=== PATIENT | female | born 1940 | race Caucasian/White ===

== ENCOUNTER 2016-04-24 18:27 | Inpatient (IN) | payer MEDICARE ==
[~2016-04-24] VITALS: Ht 147.3 cm; Wt 35.4 kg
[2016-04-24 19:05] LABS: BASOPHILS 0.3 % (0.0-2.0); EOSINOPHILS 0.5 % (0-7); HEMATOCRIT 28.9 % (36.0-48.0); IMMATURE GRANULOCYTES 0.1 % (0-5); LYMPHOCYTES 16.4 % (15-50); MCHC 31.1 g/dL (31.0-37.0); MCV 99.7 fL (80.0-100.0); MEAN PLATELET VOLUME 9.1 fL (7.4-10.4); MONOCYTES 7.1 % (2-11); NEUTROPHILS 75.6 % (40-80); PLATELET COUNT 208 10x3/uL (130-400); RDW 14.2 % (11.5-14.5); WBC 7.4 10x3/uL (4.8-10.8)
[2016-04-24 19:23] LABS: ALKALINE PHOSPHATASE 61 U/L (46-116); ALT (SGPT) 17 U/L (10-68); BILIRUBIN - TOTAL 0.18 mg/dL (0.2-1.3); CALC OSMOLALITY 282 mosm/kg (275-300); CALCIUM 8.4 mg/dL (8.5-10.1); CARBON DIOXIDE 34.5 mmol/L (21.0-32.0); CHLORIDE - SERUM 102 mmol/L (98-107); CREATININE - SERUM 0.7 mg/dL (0.6-1.3); GLUCOSE 101 mg/dL (74-106); PROTEIN - SERUM 6.2 g/dL (6.4-8.2); SODIUM 142 mmol/L (136-145); UREA NITROGEN 12 mg/dL (7-18); eGFR NON AFRICAN AMERICAN 86 mL/min (90-120)
[2016-04-24 19:42] LABS: AMYLASE - SERUM 40 U/L (25-115)
[2016-04-24 19:44] LABS: LIPASE 4 U/L (73-393); PRO BNP 1 pg/mL (0-450)
[2016-04-24 19:45] LABS: TROPONIN-I 0.066 ng/mL (0.000-0.060)
[2016-04-24 21:33] VITALS: BP 156/72
--- NOTE | 2016-04-24 21:33 | NUR ---
RECEIVED TO ROOM 2134 ALERT AND ORIENTED 75 Y/O FEMALE SEEN BY DR CHEW AND ADMITTED FOR COPD AND ANEMIA VIA W/C FROM ER. O2 @ 2L NC IN PLACE, O2 SAT 92%, SITTING ON SIDE OF BED, TELEMETRY PLACED SHOWING HR SR PER REAL ESTATE SALES ASSOCIATE. LEFT AC SL INTACT WITH NO R/S NOTED AT SITE. USES CANE TO AMBULATE, ALICIA WELL. ORIENTATION TO UNIT ROOM, BED, C/L, TV, PHONE, AND BATHROOM GIVEN WITH UNDERSTANDING VERBALIZED. HOB UP SR UP X2, C/L IN REACH. CONTINUE TO MONITOR.
[2016-04-24] MEDS ORDERED: PROAIR HFA8.5 GM INH ×3 (22:44→23:00)
[2016-04-24] MEDS ORDERED: LISINOPRIL10 MG PO (22:47)
[2016-04-24] MEDS ORDERED: LASIX20 MG PO (22:50)
[2016-04-24] MEDS ORDERED: K-TAB10 MEQ PO (22:51)
[2016-04-24] MEDS ORDERED: BREO ELLIPTA 21 EACH (22:53)
[2016-04-24] MEDS ORDERED: HYDROCODON-ACE1 EAC7 PO (22:53)
[2016-04-24] MEDS ORDERED: PROVENTIL/2.5 MG/3 M INH (22:55)
[2016-04-25] VITALS (8 sets, daily range): BP systolic 125–156; BP diastolic 51–72; Ht 147.3 cm; Wt 35.4 kg
--- NOTE | 2016-04-25 07:30 | NUR ---
RESTING QUIETLY NAD NOTED
--- NOTE | 2016-04-25 08:03 | NUR ---
ASSESSMENT DONE. PT SITTING UP ON SIDE OF BED. A/O. REFUSES BREAKFAST. REQUEST OATMEAL, NURSE SENT MESSAGE TO KITCHEN. NO DISTRESS NOTED. CALL LIGHT WITH IN REACH. WILL CONT. TO MONITOR.
--- NOTE | 2016-04-25 08:50 | NUR ---
SCD'S ON BILATERAL LE
[2016-04-25 09:31] LABS: % SATURATION 9 % (15-55); IRON 35 ug/dl (35-150); TOTAL IRON BIND CAPACITY 362 ug/dl (260-445); UNSAT IRON BIND CAPACITY 327 ug/dl (150-375)
[2016-04-25 09:32] LABS: FERRITIN 16 ng/mL (3-244); LDH 214 U/L (81-234)
--- NOTE | 2016-04-25 11:26 | NUR ---
PT LAYING IN BED, HOB ELEVATED 45 DEGREES. PT REQUEST THE AIR CONDITIONING BE TURNED DOWN, STATES SHE IS HOT. PT C/O BEING HUNGERY, BUT REFUSES ANYTHING OFFERED, AND REFUSES TO ALLOW NURSE TO REQUEST ANY ADDITION FOOD FROM KITCHEN. PT WANTS INSTANT OATMEAL "QUACKER" BRAND, THE KITCHEN MADE PT OATMEAL WITH CINNAMON AND BROWN SUGAR AT PT'S REQUEST THIS AM, WHICH PT REFUSED TO EAT. PT STATES SHE HAS TRIED TO CALL HER GRAND-DAUGHTER SEVERAL TIMES TO BRING HER SOME OATMEAL FROM HOME, AND HER CALLS ARE GOING UNANSWERED. CALL LIGHT WITH IN REACH. WILL CONT. TO MONITOR.
--- NOTE | 2016-04-25 17:34 | NUR ---
PT SITTING ON SIDE OF BED YELLING "SOMEBODY HELP ME PLEASE." CHILDBIRTH EDUCATOR IN ROOM. PT REQUESTED ASSIT WITH AMB TO RESTROOM. NURSE REMINDED PT TO USE CALL LIGHT. WILL CONT. TO MONITOR.
--- NOTE | 2016-04-25 18:18 | NUR ---
PT IS REFUSING TO SIT ON TOILET WITH HAT IN IT. NURSE HAS ATTEMPTED TO EDUCATE PT SEVERAL TIMES ON THE NEED TO MONITOR OUTPUT, BUT PT BECOMES ANXIOUS AND WILL CRY.
--- NOTE | 2016-04-25 18:34 | NUR ---
PT YELLING OUT " HELP, PLEASE HELP ME." SUPERVISOR SOUND TECHNICIAN WENT INTO ROOM. AND ASSITED PT TO RESTROOM. PT STATES " I KNOW YOU DON'T HAVE TIME FOR ME, I SEE YOU RUNNING AND HIDING FROM ME. NURSE REMINDED PT THAT WE ARE HERE TO HELP AND TAKE CARE OF HER AND WHEN SHE SEES UP "RUNNING" IT IS BECAUSE WE ARE LOOKING AFTER OTHER PTS. SHE STATES " I NEED TO GET OUT OF HERE. I'M SICK OF THIS PLACE."
--- NOTE | 2016-04-25 18:43 | NUR ---
PAGED [facility]PE CLINICAL ADMINISTRATIVE COORDINATOR TO NOTIFY OF PT'S INCREASE IN ANXIETY
--- NOTE | 2016-04-25 18:47 | NUR ---
SPOKE WITH LUPE PRORATION CLERK WITH DR. CHEW. RECEIVED ORDER FOR ATIVAN 0.5MG IV Q8H PRN. ALSO INFORMED LUPE THAT PT IS REQUESTING A ISABEL. LUPE DOES NOT WANT A ISABEL CATH PLACED. PT NOTIFED. THIS NURSE CANNOT GIVE ATIVAN AT THIS TIME. THE PIXIS IS BEING COUNTED.
--- NOTE | 2016-04-25 19:49 | NUR ---
RESUMED CARE OF PT, PT ASKING FOR FAN, I FOUND IVAN, 02-2L, IV-LAC-SL, [id number], ASSIST PT TO RESTROOM, SCD ARE ON, CALL LIGHT IN REACH, BED IS LOW, SRX2, WILL CONITUE TO MONITOR
--- NOTE | 2016-04-25 21:10 | NUR ---
FEFUSED BLOOD PRESSURE MEDS AND ATIVAN
--- NOTE | 2016-04-26 01:49 | NUR ---
PT STATES SHE HAS MONEY IN PANTS POCKET, I COUNTED $354.00,GELACIO CANALES VERIFIED, REFUSING TO SEND TO SAFE
--- NOTE | 2016-04-26 03:57 | NUR ---
SLEEPING. WILL CONTINUE TO MONITOR
[2016-04-26 05:12] VITALS: BP 144/68
--- NOTE | 2016-04-26 07:00 | NUR ---
PT. WAS RECEIVED AT THE BEGINNING OF THIS SHIFT IN BED AWAKE AND ORIENTED TO PERSON. PT VERY CONFUSED AND AGGITATED. SHE IS WORRIED ABOUT HER ANIMAL AT HOME. LEFT AC SALINE LOCKED. WILL BE MONITORING HER AND ASSISTING PRN WITH ADL'S. CALL LIGHT IN REACH.
[2016-04-26 07:26] LABS: HAPTOGLOBIN 140 mg/dL (34-200)
[2016-04-26 08:31] VITALS: BP 144/70
[2016-04-26 11:42] VITALS: BP 126/56
[2016-04-26 14:22] LABS: SPE - A/G RATIO 1.2 (0.7-1.7); SPE - ALBUMIN 3.2 g/dL (2.9-4.4); SPE - ALPHA-1 GLOBULIN 0.3 g/dL (0.0-0.4); SPE - ALPHA-2 GLOBULIN 0.7 g/dL (0.4-1.0); SPE - BETA GLOBULIN 0.9 g/dL (0.7-1.3); SPE - GAMMA GLOBULIN 0.8 g/dL (0.4-1.8); SPE - M-SPIKE Not Observed g/dL (Not Observed); SPE - TOTAL PROTEIN 5.9 g/dL (6.0-8.5)
--- NOTE | 2016-04-26 14:30 | NUR ---
PT. PULLED OUT HER IV. SHE REFUSED HER AM MEDICATIONS. SHE IS NON-COMPLIANT WITH THE STAFF AND IS AGGITATED ABOUT EVERYTHING. SHE DID TAKE A LITTLE NAP THIS AFTERNOON.
[2016-04-26] MEDS ORDERED: ASPIRIN EC81 M1 PO (15:11)
[2016-04-26] MEDS ORDERED: TOPROL XL25 MG PO (15:11)
[2016-04-26 15:51] VITALS: BP 130/55
--- NOTE | 2016-04-26 16:50 | NUR ---
Patient Name: BÁRBARA AVALOS Admission Status: ER Accout number: [id number] Admission Date: 04-24-2016 : 1940 Admission Diagnosis:ST ELEVATION (STEMI) MYOCARDIAL INFARCTION OF [facility] SITE Attending: VIMAL Current LOS: 2 Anticipated DC Date: 04-26-2016 Planned Disposition: Home Primary Insurance: MEDICARE A & B Discharge Planning Comments: * Is the patient Alert and Oriented? Yes 0 * How many steps to enter\exit or inside your home? 7-8 0 * PCP DR. CHEW 0 * Pharmacy [facility] [address] 0 * Preadmission Environment Home with Family 0 * ADLs Independent 0 * Equipment Cane Nebulizer Oxygen Walker Wheelchair 0 * Other Equipment HOME AND PORTABLE OXYGEN [facility] - MEDICAL EQUIPMENT PROVIDER 0 * List name and contact numbers for known caregivers / representatives who currently or will assist patient after discharge: KESHIA ERICKSON, [facility], 0 * Community resources currently utilized None 0 * Please name any agencies selected above. NONE 0 * Additional services required to return to the preadmission environment? No 0 * Can the patient safely return to the preadmission environment? Yes 0 * Has this patient been hospitalized within the prior 30 days at any hospital? No 0 CM MET WITH PT IN ROOM TO DISCUSS DISCHARGE PLANNING AND NEEDS. PT REPORTS LIVING AT HOME INDEPENDENTLY WITH HER MOTHER AND ADULT DAUGHTER AND HER RETARDED . PT HAS CANE, NEBULIZER, WALKER, WHEELCHAIR AND A NON WORKING SCOOTER. PT'S MEDICAL EQUIPMENT PROVIDER IS [facility]. PT HAS NO OUTSIDE SERVICES ASSISTING IN THE HOME. CM DISCUSSED AVAILABILITY OF HOME HEALTH, REHAB SERVICES AND MEDICAL EQUIPMENT. PT DENIES DISCHARGE NEEDS, SHE HAS HAD HOME HEALTH IN THE PAST AND DOES NOT NEED IT NOW. PT REPORTS HER GRANDDAUGHTER WILL PICK HER UP FOR DISCHARGE HOME TODAY. CM DISCUSSED HOW TO CONTACT HER PRIMARY DOCTOR TO ARRANGE HOME HEALTH IF SHE CHANGES HER MIND. PT REPORTS NOT REALLY HAVING PRIMARY CARE DOCTOR, HAS BEEN SEEING DR CHEW; CM PROVIDED AND DISCUSSED [facility] INFORMATION TO AID IN PT'S SEARCH FOR PRIMARY CARE DOCTOR. IMPORTANT MESSAGE FROM MEDICARE PROVIDED AND EXPLAINED. Community Health Promoter: Javed Orantes
[2016-04-26 19:00] VITALS: BP 129/57
--- NOTE | 2016-04-26 19:15 | NUR ---
RECEIVED PT IN BED NAD NOTED STATES TRYING TO GET IN TOUCH WITH HER GRANDDAUGHTER TO PICK HER UP. UNABLE TO REACH ANYONE WILL CONTINUE TO TRY
[2016-04-27] VITALS: BP 118/61
[2016-04-27 04:00] VITALS: BP 123/59
[2016-04-27 07:39] VITALS: BP 156/62
--- NOTE | 2016-04-27 09:25 | NUR ---
DAUGHTER CALLED TO CHECK ON PATIENT. INFORMED DAUGHTER(COLE) THAT PATIENT WAS DISCHARGED YESTERDAY BUT COULD NOT GET HOLD OF ANYONE TO COME AND GET HER. DAUGHTER SAID SHE WOULD CALL SOMEONE.
--- NOTE | 2016-04-27 12:41 | NUR ---
PATIENT FAMILY HERE TO TRANSPORT PT HOME. DISCHARGE INSTRUCTIONS GIVEN AND BOTH PATIENT AND FAMILY UNDERSTAND. TO CAR VIA
--- NOTE | 2016-05-02 14:16 | EC ---
PATIENT:BÁRBARA AVALOS DATE OF SERVICE: 04/24/16 SEX: F MEDICAL RECORD: [id number] DATE OF : [birth year] LOCATION:D.M2 D.213 AGE OF PATIENT: 75 ADMISSION DATE: 04/24/16 REFERRING PHYSICIAN: INTERPRETING PHYSICIAN: JEFF AVENDAÑO MD ECHOCARDIOGRAM REPORT ECHO CHARGES 4 ECHO COMPLETE CLINICAL DIAGNOSIS: CHF ECHOCARDIOGRAPHIC MEASUREMENTS (adult normal given) AC root (d.<3.7cm) 2.7 LV Septum d (<1.2 cm> 1.1 Valve Excursion 1.2 LV Septum (systole) 1.4 Left Atria (s.<4.0cm> 3.5 LVPW d(<1.2cm) 1.2 RV (d.<2.3cm) 1.6 LVPW (sytole) 1.4 LV diastole(<5.6CM) 5.5 MV E-F(>70mm/sec) LV systole 4.6 LVOT Diameter 1.4 MV exc.(>10mm) Est.ejection fraction (50-75%) Pericardial Effusion N DOPPLER: LVIT A 160 E 120 LA RVSP 61.0 LVOT 81.0 AOP1/2T Asc. Ao 202 RVOT 79.0 RA PA 96.0 AV Gradient Peak 16.4 AV Mean 8.3 AV Area 0.6 MV Gradient Peak 12.0 MV Mean 3.0 MV Area COMMENTS: Dispatch Machine Runner: Lori OLSONOE Barrel Filler:1 Dr. Avendaño TAPE# PACS DATE OF SERVICE: 04/25/2016 Echocardiogram FINDINGS: 1. Left ventricular chamber size is dilated. Left ventricular systolic function is markedly reduced, overall ejection fraction in the 20% range. There is global hypokinesis throughout all segments with no discrete wall motion abnormalities present. 2. Left atrium is within normal limits at 3.5 cm. Right atrium and right ECHOCARDIOGRAM REPORT [id number] BÁRBARA AVALOS ventricle chamber sizes are mildly dilated. 3. Valvular structures have normal structure and motion. 4. Doppler interrogation reveals wupblios-iu-[id number] mitral regurgitation, ummybscg-et-[id number] tricuspid regurgitation, no other valvular insufficiency or stenosis and pulmonary systolic pressure is elevated estimated at 61 mmHg. 5. No evidence of pericardial effusion or left ventricular thrombus. TRANSINT:[id number] Voice Confirmation ID: [id number] DOCUMENT ID: [id number] JEFF AVENDAÑO MD at 1416 CC: [id number] DICTATION DATE: 04/25/16 1233 ENVIRONMENTAL HEALTH MANAGER: 04/25/16 1254 DIS IN 04/27/16 [facility] [address] [id number]
--- NOTE | 2016-06-06 12:39 | DS ---
PATIENT:BÁRBARA AVALOS :38 MEDICAL RECORD: [id number] DISCHARGE SUMMARY ADMISSION DATE: 04/24/16 DISCHARGE DATE: 04/27/16 ADMIT DATE: 04/24/2016 DISCHARGE DATE: 04/27/2016 DISCHARGE DIAGNOSES: 1. Chronic obstructive pulmonary disease exacerbation. 2. Iron deficiency anemia. 3. Congestive heart failure. 4. Cardiomyopathy. 5. Type 2 myocardial infarction secondary to demand ischemia. 6. Congestive heart failure. 7. Deep venous thrombosis. CONSULTS: Dr. Schilling. DIAGNOSTIC TESTS OR STUDIES: 1. Chest x-ray suggests mild congestive heart failure. 2. A venous Doppler of the lower extremities, which was negative for DVT on the right. There was evidence of a thrombus in the greater saphenous vein in the mid calf and ankle. 3. A 2D echo which shows global hypokinesis with EF of 20% with moderate to severe mitral regurgitation, moderate to severe tricuspid regurgitation and pulmonary pressures of 61 mmHg. HOSPITAL COURSE: The full H&P is listed elsewhere in the chart for this 75-year-old female patient, who was admitted with type 2 MO secondary to demand ischemia. She presented to the Emergency Department with shortness of breath and chest discomfort, had noted pulmonary vascular congestion on chest x-ray as well as low LV function with [id number] valvular abnormalities and pulmonary hypertension. A consult was obtained with the cardiology. The patient was started on a beta-blockade and aspirin. She underwent gentle diuresis. Dr. Leal was consulted for the thrombus of the lower extremity for coagulopathy workup. The patient will be worked up in the outpatient venue. The patient's clinical condition improved and the patient was thought to be stable to discharge to home on a regular diet with activity as tolerated. See med rec for the medications. TRANSINT:[id number] Voice Confirmation ID: [id number] DOCUMENT ID: [id number] Dictated By: JAELYN GRIMALDO I have interviewed/examined the above patient and agree with these documented findings. at 1233 at 1238 CC: [id number] DICTATION DATE: 06/02/16 0832 CASINO RUNNER: 06/02/16 2353 DIS IN 04/27/16 [id number] [place] [address]
== END 2016-04-27 12:42 | disposition home or self-care (01) | DRG 811 ==
LOC: D.ER 18:27 → D.M2 20:31
PROVIDERS: Emergency Medicine; Internal Medicine Hematology & Oncology; ADMIT Family Medicine
DX: D50.9 Iron deficiency anemia, unspecified (principal); I21.3 ST elevation (STEMI) myocardial infarction of unspecified site; J44.1 Chronic obstructive pulmonary disease with (acute) exacerbation; I42.9 Cardiomyopathy, unspecified; I24.8 Other forms of acute ischemic heart disease; I50.9 Heart failure, unspecified; I08.1 Rheumatic disorders of both mitral and tricuspid valves; F32.9 Major depressive disorder, single episode, unspecified; Z72.0 Tobacco use

== ENCOUNTER 2016-05-23 02:07 | Emergency (ER) | payer MEDICARE ==
[2016-04-25 14:52] VITALS: BMI 16.3
[~2016-05-23 02:07] MED LIST: ASPIRIN EC81 M1 PO; BREO ELLIPTA 21 EACH; HYDROCODON-ACE1 EAC7 PO; K-TAB10 MEQ PO; LASIX20 MG PO; LISINOPRIL10 MG PO; PROAIR HFA8.5 GM INH; PROVENTIL/2.5 MG/3 M INH; TOPROL XL25 MG PO
== END 2016-05-23 04:41 | disposition home or self-care (01) ==
LOC: D.ER 02:07
DX: J44.1 Chronic obstructive pulmonary disease with (acute) exacerbation (principal); I50.9 Heart failure, unspecified

== ENCOUNTER 2016-05-25 06:40 | Inpatient (IN) | payer MEDICARE ==
[~2016-05-25] VITALS: Ht 147.3 cm; Wt 35.4 kg
[2016-05-25 07:36] LABS: ALBUMIN 3.3 g/dL (3.4-5.0); ALKALINE PHOSPHATASE 79 U/L (46-116); ALT (SGPT) 16 U/L (10-68); BILIRUBIN - TOTAL 0.35 mg/dL (0.2-1.3); CALC OSMOLALITY 281 mosm/kg (275-300); CALCIUM 8.7 mg/dL (8.5-10.1); CARBON DIOXIDE 38.5 mmol/L (21.0-32.0); CHLORIDE - SERUM 101 mmol/L (98-107); CREATININE - SERUM 0.4 mg/dL (0.6-1.3); GLUCOSE 95 mg/dL (74-106); POTASSIUM - SERUM 3.7 mmol/L (3.5-5.1); PROTEIN - SERUM 6.9 g/dL (6.4-8.2); SODIUM 142 mmol/L (136-145); UREA NITROGEN 11 mg/dL (7-18); eGFR NON AFRICAN AMERICAN > 90 mL/min (90-120)
[2016-05-25 07:40] LABS: TROPONIN-I 0.036 ng/mL (0.000-0.060)
[2016-05-25 07:42] LABS: BASOPHILS 0.1 % (0.0-2.0); EOSINOPHILS 0.5 % (0-7); HEMATOCRIT 30.2 % (36.0-48.0); HEMOGLOBIN 9.2 g/dL (12-16); IMMATURE GRANULOCYTES 0.3 % (0-5); LYMPHOCYTES 12.9 % (15-50); MCH 30.3 pg (26.0-34.0); MCHC 30.5 g/dL (31.0-37.0); MCV 99.3 fL (80.0-100.0); MEAN PLATELET VOLUME 9.1 fL (7.4-10.4); MONOCYTES 5.4 % (2-11); NEUTROPHILS 80.8 % (40-80); PLATELET COUNT 238 10x3/uL (130-400); RBC 3.04 10x6/uL (4.00-5.40); RDW 14.1 % (11.5-14.5); WBC 7.5 10x3/uL (4.8-10.8)
--- NOTE | 2016-05-25 11:00 | NUR ---
PATIENT TO ROOM AT THIS TIME WITH IV INTACT. PATIENT ANXIOUS AND WORRIED ASKING FOR BP EVERY FEW SECONDS WELL FOOD AND WATER. EXPLAINED TO PATIENT TO LET US GET HER IN THE BED AND COMFORTABLE AND WOULD LET HER USE THE BED ORDAZ. VERBALIZED UNDERSTANDING. ASSISTED TO THE BED X 2. PLACED ON BEDPAN. CALL LIGHT WITHIN REACH.
--- NOTE | 2016-05-25 11:15 | NUR ---
PATIENT IN BED WITH IV INTACT. FOOD GIVEN AT THIS TIME PER REQUEST. O2 ON. EXPLAINED CALL LIGHT AND ORIENTED TO ROOM. NO QUESTIONS AT THIS TIME. CALL LIGHT WITHIN REACH.
[2016-05-25 11:46] VITALS: BP 154/82
[2016-05-25 16:17] VITALS: BP 140/66
[2016-05-25 18:45] VITALS: BMI 16.3
--- NOTE | 2016-05-25 18:55 | NUR ---
PATIENT IN BED WITH IV INTACT. NO COMPLAINTS OR SIGNS OF DISTRESS. FAMILY AT BEDSIDE. CALL LIGHT WITHIN REACH.
--- NOTE | 2016-05-25 19:15 | NUR ---
BEDSIDE REPORT RECEIVED AND CARE OF PT ASSUMED. IV IN LEFT FA SALINE LOCKED. TELEMETRY IN USE AND READING 71 SR AT THIS ASSESSMENT. WILL MONITOR FADYLEY FOR NEEDS.
[2016-05-25 21:00] VITALS: BP 140/75
[2016-05-25] MEDS ORDERED: SPIRIVA18 MCG INH (21:14)
[2016-05-25] MEDS ORDERED: KLONOPIN0.5 MG PO (21:17)
--- NOTE | 2016-05-25 22:18 | NUR ---
HS MEDICATIONS GIVEN. WILL CONTINUE TO MONITOR FOR NEEDS.
[2016-05-26 02:30] VITALS: BP 144/88
[2016-05-26 05:00] VITALS: BP 133/72
--- NOTE | 2016-05-26 05:37 | NUR ---
ASSISTED PT UP TO USE BSC OR BEDPAN 13 TIMES DURING SHIFT FOR A TOTAL OUTPUT OF 1125 ML.
[2016-05-26 05:49] LABS: BASOPHILS 0 % (0.0-2.0); EOSINOPHILS 0 % (0-7); HEMATOCRIT 29.3 % (36.0-48.0); IMMATURE GRANULOCYTES 0.1 % (0-5); LYMPHOCYTES 3.4 % (15-50); MCHC 30.7 g/dL (31.0-37.0); MCV 97.7 fL (80.0-100.0); MEAN PLATELET VOLUME 9.4 fL (7.4-10.4); MONOCYTES 2.2 % (2-11); NEUTROPHILS 94.3 % (40-80); RDW 13.6 % (11.5-14.5); WBC 7.9 10x3/uL (4.8-10.8)
[2016-05-26 06:05] LABS: CALC OSMOLALITY 282 mosm/kg (275-300); CALCIUM 8.5 mg/dL (8.5-10.1); CARBON DIOXIDE 35.4 mmol/L (21.0-32.0); CHLORIDE - SERUM 99 mmol/L (98-107); CREATININE - SERUM 0.5 mg/dL (0.6-1.3); GLUCOSE 91 mg/dL (74-106); MAGNESIUM - SERUM 1.9 mg/dL (1.8-2.4); SODIUM 140 mmol/L (136-145); eGFR NON AFRICAN AMERICAN > 90 mL/min (90-120)
[2016-05-26 06:09] LABS: UREA NITROGEN 23 mg/dL (7-18)
[2016-05-26 06:23] LABS: PLATELET COUNT 129 10x3/uL (130-400)
--- NOTE | 2016-05-26 07:35 | NUR ---
ASSESSMENT PER FLOW SHEET.PT WITHOUT DISTRESS.CALL LIGHT IN REACH.FALL PREVENTION IN PROGRESS,BOX ALARM.
--- NOTE | 2016-05-26 08:30 | NUR ---
ASSESSMENT PER FLOW SHEET.PT WITHOUT DISTRESS.FAMILY AT BEDSIDE.DENIES NEEDS AT PRESENT.CALL LIGHT IN REACH
[2016-05-26 08:35] VITALS: BP 159/55
--- NOTE | 2016-05-26 09:40 | CN ---
PATIENT NAME:BÁRBARA AVALOS MEDICAL RECORD: [id number] : [birth year] LOCATION:D.MS [id number] ADMIT DATE: 05/25/16 ACCOUNT: [id number] CONSULTING PHYSICIAN: LIBBY ORTIZ MD REFERRING PHYSICIAN: YAAKOV DIAZ M.D. DATE OF CONSULTATION: 05/25/2016 PULMONARY CONSULTATION CONSULT REQUESTING PHYSICIAN: Dr. Yaakov Diaz. REASON FOR CONSULTATION: Acute exacerbation of chronic obstructive pulmonary disease, pulmonary edema and pneumonia. HISTORY OF PRESENT ILLNESS: Ms. Avalos is a 75-year-old female, who is a very poor historian. According to the patient, she is not doing well for the last 2-3 years since the of her . She has lost almost 100 pounds. She denies any fever or chills, no night sweats. But for the last few days, she is coughing green colored phlegm and she has a shortness of breath with mild exertion. Her activity was very limited. Her daughter brought her to the ER. Denied any chest pain. There was some swelling of the lower extremities, but there is no pain. REVIEW OF SYSTEMS: Mainly in the history of present illness. PAST MEDICAL HISTORY: 1. COPD. 2. Chronic hypoxic respiratory failure. 3. History of congestive heart failure with the EF 20%. 4. Pulmonary hypertension. ALLERGIES: SHE IS ALLERGIC TO SULFA AND ACETAMINOPHEN. HOME MEDICATIONS: She is on nebulizer, but this looked like she was not using any because the patient could not afford it. PERSONAL AND SOCIAL HISTORY: The patient still continues to smoke 1 pack per day. She is not a nondrinker. FAMILY HISTORY: Noncontributory. PHYSICAL EXAMINATION: GENERAL: Now, the patient is lying comfortably. She is very initiated. VITAL SIGNS: The blood pressure 154/82, pulse is 113, respiration is 18, temperature is ____, SpO2 is 92% on 3 liter nasal cannula. HEENT: Conjunctivae are pink. Sclerae nonicteric. NECK: Supple, no JVD. CHEST: There is prolonged expiration with wheezing. There are also bibasilar crackles. HEART: Rate and rhythm irregular. There is a grade II/ systolic murmur. ABDOMEN: Soft, bowel sounds present. No hepatosplenomegaly. RECTAL: Deferred. EXTREMITIES: No cyanosis, no clubbing. There is 1+ pedal edema. CENTRAL NERVOUS SYSTEM: The patient is awake and alert. She is a bit hard of hearing. CONSULT REPORT [id number] BÁRBARA AVALOS LABORATORY DATA: CBC: WBC 7.5, hemoglobin 9.2, hematocrit 30.2, and platelet count 238. Chemistry: Sodium 142, potassium 3.7, BUN is 11, creatinine 0.4, glucose 95. ABG: The pH is 7.42, pCO2 is 57, pO2 is 79, bicarbonate of 37.3. IMAGING: CTA of the chest: There is pulmonary edema. There is a emphysematous changes. There are bilateral lower lobe infiltrate. There is bilateral small pleural effusion. There is a remote compression fracture of T7 and T9. IMPRESSION: 1. Abyhu-xs-eueltih hypoxic respiratory failure. 2. Acute exacerbation of chronic obstructive pulmonary disease. 3. Pneumonia, bilateral lower lobe, most likely community-acquired pneumonia, rule out aspiration pneumonia. 4. Bilateral pleural effusion secondary to congestive heart failure with a chronic systolic dysfunction, ejection fraction of 20%. 5. Pulmonary hypertension of severe degree secondary to left heart disease as well as the lung disease. 6. Tobacco dependence syndrome. 7. Unexplained weight loss. RECOMMENDATION: 1. We will start her albuterol/ipratropium nebulizer, Brovana, budesonide nebulizer, methylprednisolone IV, Levaquin IV, furosemide IV, Rocephin 1 g IV q.24 hours. 2. Speech pathology evaluation. Follow labs and chest radiograph. Dr. Diaz, once again thanks for involving me in the care of Ms. Avalos. TRANSINT:[id number] Voice Confirmation ID: [id number] DOCUMENT ID: [id number] LIBBY ORTIZ MD at 0940 CC: YAAKOV DIAZ M.D. [id number] DICTATION DATE: 05/25/16 1321 COOK FISHING VESSEL: 05/25/16 1632 ADM IN [id number] [place] [address]
--- NOTE | 2016-05-26 12:30 | NUR ---
ICE PACK FOR RIGHT FOREARM.PT STATES VERY TENDER.MONITOR FOR NEEDS
--- NOTE | 2016-05-26 13:00 | NUR ---
BITES OF LUNCH.WITHOUT DISTRESS.MONITOR
[2016-05-26 13:31] VITALS: BP 160/69; Ht 147.3 cm; Wt 35.4 kg
[2016-05-26 16:17] VITALS: BP 169/78
--- NOTE | 2016-05-26 17:55 | NUR ---
REMAINS WITHOUT CHANGE FROM INITIAL ASSESSMENT.CONT PLAN OF CARE
--- NOTE | 2016-05-26 18:06 | NUR ---
REMAINS WITHOUT CHANGE FROM INITIAL ASSESSMENT.CONT PLAN OF CARE
[2016-05-26 20:00] VITALS: BP 125/71
--- NOTE | 2016-05-26 21:31 | NUR ---
AWAKE WITH NO COMPLAINTS. IV INFUSING TO LEFT ARM WITHOUT REDNESS OR EDEMA NOTED. CL IN REACH.
[2016-05-27] VITALS: BP 150/79
--- NOTE | 2016-05-27 02:06 | NUR ---
EYES CLOSED RESP EVEN AND UNLABORED. NO DISTRESS NOTED. CL IN REACH. BED ALARM ON.
--- NOTE | 2016-05-27 03:45 | NUR ---
PT IS ASLEEP WITH ON AT 2 LITERS AND EAVN UNLABORED RESPIRATIONS. SHE HAS A BED ALARM IN PLACE AND HER IV IS INFUSING ORDERED. PT IS CLOSE TO THE NURSING STATION WITH THE DOOR OPEN. THE BED IS LOW, RAILS UP X'S 2 WITH THE CALL LIGHT AT HAND.
[2016-05-27 04:00] VITALS: BP 153/68
[2016-05-27 05:43] LABS: BASOPHILS 0 % (0.0-2.0); EOSINOPHILS 0 % (0-7); HEMATOCRIT 28.2 % (36.0-48.0); HEMOGLOBIN 8.7 g/dL (12-16); IMMATURE GRANULOCYTES 0.2 % (0-5); LYMPHOCYTES 5.5 % (15-50); MCH 29.7 pg (26.0-34.0); MCHC 30.9 g/dL (31.0-37.0); MCV 96.2 fL (80.0-100.0); MEAN PLATELET VOLUME 9.8 fL (7.4-10.4); MONOCYTES 4.9 % (2-11); NEUTROPHILS 89.4 % (40-80); PLATELET COUNT 129 10x3/uL (130-400); RBC 2.93 10x6/uL (4.00-5.40); RDW 13.5 % (11.5-14.5); WBC 6.2 10x3/uL (4.8-10.8)
[2016-05-27 05:55] LABS: CALC OSMOLALITY 286 mosm/kg (275-300); CALCIUM 8.7 mg/dL (8.5-10.1); CHLORIDE - SERUM 98 mmol/L (98-107); CREATININE - SERUM 0.6 mg/dL (0.6-1.3); GLUCOSE 89 mg/dL (74-106); MAGNESIUM - SERUM 2.2 mg/dL (1.8-2.4); SODIUM 142 mmol/L (136-145); UREA NITROGEN 27 mg/dL (7-18); eGFR NON AFRICAN AMERICAN > 90 mL/min (90-120)
[2016-05-27 05:58] LABS: POTASSIUM - SERUM 3.2 mmol/L (3.5-5.1)
--- NOTE | 2016-05-27 06:12 | NUR ---
RESTING QUIETLY. NO DISTRESS NOTED. CL IN REACH.
--- NOTE | 2016-05-27 07:18 | NUR ---
PT SITTING IN BED HAVING A BREATHING TREATMENT, NO COMPLAINTS AT THIS TIME, CALL LIGHT IN REACH, BED LOWEST POSITION, WILL CONTINUE TO MONITOR
[2016-05-27 08:13] VITALS: BP 161/69
--- NOTE | 2016-05-27 08:29 | NUR ---
PT SEEN FOR SHEET METAL ASSEMBLER NOTE. COMPLAINTS OF A BAD NIGHT AGAIN WITH NO REST. MILD SOB THIS AM BUT THIS IS NORMAL FOR HER SHE STATES. EXP WHEEZES HEARD WHEN COUGHING. SITTING ON SIDE OF BED FOR AM MEAL. BED ALARM ON FOR SAFETY AND CALL LIGHT IN REACH
--- NOTE | 2016-05-27 12:14 | NUR ---
PT LAYING IN BED RESTING, BACK IS SORE TURNED PT TO SIDE TO RELIEVE PRESSURE, SIDE RAILS UP X2, BED LOWEST POSITION, NO OTHER COMPLAINTS AT THIS TIME, WILL CONTINUE TO MONITOR
[2016-05-27 12:26] VITALS: BP 176/79
--- NOTE | 2016-05-27 15:19 | NUR ---
Patient Name: BÁRBARA AVALOS Admission Status: ER Accout number: [id number] Admission Date: 05-25-2016 : 1940 Admission Diagnosis:ACUTE AND CHRONIC RESPIRATORY FAILURE WITH HYPOXIA Attending: JAMMIE Current LOS: 2 Anticipated DC Date: 05-30-2016 Planned Disposition: Home Primary Insurance: MEDICARE A & B Discharge Planning Comments: CM MET WITH PATIENT REGARDING D/C NEEDS AND PLANS. PATIENT STATED SHE LIVES WITH HER FAMILY AND THEY HELP HER IF NEEDED. PATIENT STATED SHE HAS 3 STEPS W/RAILS TO ENTER HOME AND NO STAIRS INSIDE. PATIENT STATED SHE IS INDEPENDENT WITH HER CARE AND HAS OXYGEN 24/7 AT 2LITERS, PORT O2, NEBULIZER, WALKER, WHEELCHAIR, SHOWER CHAIR, AND BS COMMODE AT HOME. PATIENTS PCP IS DR. CHEW AND PHARMACY IS [facility] [address]. PATIENT REFUSED HOME HEALTH AND STATED SHE DOES NOT NEED THEM. CM WILL CONTINUE TO FOLLOW PATIENT WITH D/C NEEDS AND PLANS. PCP DR. NAINA [facility] [address]- [phone] KESHIA (DAUGHTER) [phone] Director Biostatistics: Cristal Jude Is the patient Alert and Oriented? Yes 0 * How many steps to enter\exit or inside your home? 3 W/RAILS 0 * PCP DR. CHEW 0 * Pharmacy [facility] [address] 0 * Preadmission Environment Home with Family 0 * ADLs Independent 0 * Equipment Bedside Commode Nebulizer Oxygen Shower Chair Walker Wheelchair 0 * List name and contact numbers for known caregivers / representatives who currently or will assist patient after discharge: KESHIA (FAMILY) [phone] 0 * Community resources currently utilized None 0 * Additional services required to return to the preadmission environment? Yes 0 * Can the patient safely return to the preadmission environment? Yes 0 * Has this patient been hospitalized within the prior 30 days at any hospital? Yes 0 Grand Total: 0
[2016-05-27 16:02] VITALS: BP 153/69
[2016-05-27 21:00] VITALS: BP 141/61
--- NOTE | 2016-05-28 00:18 | NUR ---
PT IS AWAKE AND AT TIME OF CHECK REQUESTED TO BE UP TO BSC TO VOID. THIS WAS DONE AND SHE VOIDED ABOUT 400 CC'S WITH OUT PROBLEM. SHE IS SHAKEY AND HAS A BED ALARM IN PLACE FOR SAFETY. SHE IS WEARING HER SCD'S AND THE BED IS LOW, RAILS UP X'S 2 WITH THE CALL LIGHT AT HAND. AND DOOR OPEN.
[2016-05-28 04:00] VITALS: BP 124/56
[2016-05-28 06:42] LABS: BASOPHILS 0 % (0.0-2.0); EOSINOPHILS 0 % (0-7); HEMATOCRIT 33.1 % (36.0-48.0); HEMOGLOBIN 10.2 g/dL (12-16); LYMPHOCYTES 4.1 % (15-50); MCH 30.1 pg (26.0-34.0); MCHC 30.8 g/dL (31.0-37.0); MCV 97.6 fL (80.0-100.0); MEAN PLATELET VOLUME 9.9 fL (7.4-10.4); NEUTROPHILS 93.9 % (40-80); RBC 3.39 10x6/uL (4.00-5.40); RDW 13.4 % (11.5-14.5); WBC 5.4 10x3/uL (4.8-10.8)
[2016-05-28 06:47] LABS: PLATELET COUNT 163 10x3/uL (130-400)
[2016-05-28 07:01] LABS: CALCIUM 8.6 mg/dL (8.5-10.1); CHLORIDE - SERUM 93 mmol/L (98-107); CREATININE - SERUM 0.5 mg/dL (0.6-1.3); POTASSIUM - SERUM 3.1 mmol/L (3.5-5.1); SODIUM 140 mmol/L (136-145); UREA NITROGEN 22 mg/dL (7-18); eGFR NON AFRICAN AMERICAN > 90 mL/min (90-120)
[2016-05-28 07:03] LABS: CALC OSMOLALITY 284 mosm/kg (275-300); GLUCOSE 155 mg/dL (74-106)
[2016-05-28 07:05] LABS: CARBON DIOXIDE 44.5 mmol/L (21.0-32.0)
--- NOTE | 2016-05-28 07:30 | NUR ---
SLEEPING QUIETLY RESP EVEN AND UNLABORED AT PRESENT 02 CONT AT 2L N/C SL PATENT IN LFA AT PRESENT.
--- NOTE | 2016-05-28 09:30 | NUR ---
FAMILY AT BEDSIDE N/C VOICED.
[2016-05-28 10:36] VITALS: BP 142/57
--- NOTE | 2016-05-28 11:00 | NUR ---
02 CONT AT 2L N/C AT PRESENT.
[2016-05-28 11:32] VITALS: BP 160/73
--- NOTE | 2016-05-28 13:00 | NUR ---
UP TO BSC WITH HELP ALICIA WELL AT PRESENT N/C.
[2016-05-28 15:12] VITALS: BP 142/54
--- NOTE | 2016-05-28 15:30 | NUR ---
LAYING QUIETLY WITH EYES CLOSED AT PRESENT N/C AT PRESENT.
--- NOTE | 2016-05-28 17:30 | NUR ---
QUIET IN ROOM AT PRESENT DENIES ANY NEEDS AT THIS TIME WAITING ON SUPPER TRAY.
--- NOTE | 2016-05-28 19:10 | NUR ---
REC'D IN BED WITH EYES CLOSED EASILY TO AROUSED WHEN NAME IS CALLED. RESP EVEN AND UNLABORED WITH NO DISTRESS NOTED. CAN EXPRESS NEEDS AND WANTS. ASSESSMENT COMPLETED. C/L IN REACH AT BEDSIDE.
[2016-05-28 20:00] VITALS: BP 117/63
[2016-05-29] VITALS: BP 118/55
--- NOTE | 2016-05-29 02:01 | NUR ---
LYING IN BED AWAKE, NO ACUTE DISTRESS NOTED, REQUESTED INFORMATION ABOUT AN ASSISTED LIVING FACILITY, WILL REPORT TO DAY SHIFT, FALL PRECAUTIONS IN PLACE, CL IN REACH
--- NOTE | 2016-05-29 03:32 | NUR ---
RESTING WELL AT THIS TIME. NO C/O NOTED OR VOICED AT THIS TIME. WILL CONITNUE TO OBSERVE FOR NEEDS. C/L IN REACH AT BEDSIDE.
[2016-05-29 04:00] VITALS: BP 120/54
[2016-05-29 05:56] LABS: BASOPHILS 0 % (0.0-2.0); EOSINOPHILS 0 % (0-7); HEMATOCRIT 35.1 % (36.0-48.0); HEMOGLOBIN 10.8 g/dL (12-16); IMMATURE GRANULOCYTES 0.1 % (0-5); LYMPHOCYTES 6.8 % (15-50); MCH 29.9 pg (26.0-34.0); MCHC 30.8 g/dL (31.0-37.0); MCV 97.2 fL (80.0-100.0); MEAN PLATELET VOLUME 10.5 fL (7.4-10.4); MONOCYTES 9.2 % (2-11); NEUTROPHILS 83.9 % (40-80); PLATELET COUNT 193 10x3/uL (130-400); RBC 3.61 10x6/uL (4.00-5.40); RDW 13.2 % (11.5-14.5); WBC 6.9 10x3/uL (4.8-10.8)
[2016-05-29 06:13] LABS: CALC OSMOLALITY 287 mosm/kg (275-300); CALCIUM 8.8 mg/dL (8.5-10.1); CHLORIDE - SERUM 94 mmol/L (98-107); CREATININE - SERUM 0.5 mg/dL (0.6-1.3); GLUCOSE 115 mg/dL (74-106); MAGNESIUM - SERUM 2.1 mg/dL (1.8-2.4); SODIUM 142 mmol/L (136-145); UREA NITROGEN 24 mg/dL (7-18); eGFR NON AFRICAN AMERICAN > 90 mL/min (90-120)
[2016-05-29 06:14] LABS: CARBON DIOXIDE 48.1 mmol/L (21.0-32.0); POTASSIUM - SERUM 2.7 mmol/L (3.5-5.1)
--- NOTE | 2016-05-29 07:45 | NUR ---
PT SITTING IN BED, CAN EXPRESS WANTS AND NEEDS, NO CURRENT COMPLAINTS, ASSESSMENT COMPLETE, CALL LIGHT IN REACH, BED LOWEST POSITION, WILL CONTINUE TO MONITOR
[2016-05-29 09:01] VITALS: BP 129/63
--- NOTE | 2016-05-29 10:39 | NUR ---
TALKED TO DR ORTIZ, INFORMED HIM OF CO2 LEVEL 48.1
[2016-05-29 12:06] VITALS: BP 115/62
--- NOTE | 2016-05-29 13:27 | NUR ---
PT SITTING IN BED, NO COMPLAINTS AT THIS TIME, BED LOWEST POSITION, CALL LIGHT IN REACH, WILL CONTINUE TO MONITOR
--- NOTE | 2016-05-29 14:36 | NUR ---
PT REFUSED MEDICATION, SHE STATES SHE WANTS TO GO HOME, WILL CONTINUE TO MONITOR
[2016-05-29 16:26] VITALS: BP 132/70
--- NOTE | 2016-05-29 17:00 | NUR ---
QUIET IN ROOM AT PRESENT DENIES ANY NEEDS AT PRESENT 02 CONT AT 2L AT PRESENT.
[2016-05-29 19:00] VITALS: BP 121/58
--- NOTE | 2016-05-29 19:32 | NUR ---
REC'D IN BED AWAKE AND ALERT WITH MOMENT OF CONFUSION DOING UPDRAFT TREATMENT. NO C/O NOTED OR VOICED AT THIS TIME. STAND BY ASSISTANCE GIVEN FOR TRANSFER TO BSC. ASSESSMENT COMPLETED. C/L IN REACH AT BEDSIDE.
[2016-05-30] VITALS: BP 131/56
--- NOTE | 2016-05-30 02:00 | NUR ---
PT IN BED WITH NO DISTRESS. RESPIRATIONS EVEN AND UNLABORED. SCD'S OFF AT THIS TIME. O2 @ 3 PER NASAL CANNULA. TELEMETRY ON. LEFT FOREARM SALINE LOC. SIDE RAILS ARE UP X 2. BED IS LOW. CALL LIGHT IN REACH.
[2016-05-30 04:00] VITALS: BP 124/64
[2016-05-30 05:37] LABS: BASOPHILS 0 % (0.0-2.0); EOSINOPHILS 0 % (0-7); HEMATOCRIT 37.1 % (36.0-48.0); HEMOGLOBIN 11.7 g/dL (12-16); IMMATURE GRANULOCYTES 0.2 % (0-5); LYMPHOCYTES 7.1 % (15-50); MCH 30.5 pg (26.0-34.0); MCHC 31.5 g/dL (31.0-37.0); MCV 96.9 fL (80.0-100.0); MEAN PLATELET VOLUME 10.6 fL (7.4-10.4); MONOCYTES 8.5 % (2-11); NEUTROPHILS 84.2 % (40-80); PLATELET COUNT 178 10x3/uL (130-400); RBC 3.83 10x6/uL (4.00-5.40); RDW 13.5 % (11.5-14.5); WBC 6.2 10x3/uL (4.8-10.8)
[2016-05-30 05:52] LABS: ALBUMIN 3.5 g/dL (3.4-5.0); ALKALINE PHOSPHATASE 135 U/L (46-116); ALT (SGPT) 418 U/L (10-68); BILIRUBIN - TOTAL 0.45 mg/dL (0.2-1.3); CALC OSMOLALITY 294 mosm/kg (275-300); CALCIUM 9.1 mg/dL (8.5-10.1); CHLORIDE - SERUM 95 mmol/L (98-107); CREATININE - SERUM 0.5 mg/dL (0.6-1.3); GLUCOSE 142 mg/dL (74-106); MAGNESIUM - SERUM 2.1 mg/dL (1.8-2.4); PROTEIN - SERUM 6.6 g/dL (6.4-8.2); SODIUM 144 mmol/L (136-145); UREA NITROGEN 28 mg/dL (7-18); eGFR NON AFRICAN AMERICAN > 90 mL/min (90-120)
[2016-05-30 06:28] LABS: CARBON DIOXIDE 46.5 mmol/L (21.0-32.0); POTASSIUM - SERUM 2.9 mmol/L (3.5-5.1)
--- NOTE | 2016-05-30 07:11 | NUR ---
PT POTASSIUM LEVEL WAS 2.9 ON THIS AM PT WANTED TO WAIT UNTIL 0730 BEFORE TAKING HER ELECT. PROTOCOL. INFORMED ONCOMING NURSE OF WHEN PT WAS WANTING POTASSIUM. C/L IN REACH AT BEDSIDE.
--- NOTE | 2016-05-30 07:20 | NUR ---
ASSISTED PT UP BEDSIDE COMMODE WITH STAND BY ASSIST AT THIS TIME. DENIES FURTHER NEEDS AT THIS TIME. CALL LIGHT IN REACH, WILL CONTINUE WITH PLAN OF CARE.
[2016-05-30 08:18] VITALS: BP 111/63
--- NOTE | 2016-05-30 08:37 | NUR ---
SCHEDULED MEDIATIONS ADMINISTERED AT THIS TIME. ASSESSMENT PERFORMED PER FLOWSHEET AND PT ASSISTED UP AND BACK TO BED FROM THE BEDSIDE COMMODE. CALL LIGHT IN REACH, WILL CONTINUE WITH PLAN OF CARE.
--- NOTE | 2016-05-30 10:44 | NUR ---
ELECTROLYTE PROTOCOL INITIATED AT THIS TIME. DENIES NEEDS AT PRESENT TIME. CALL LIGHT IN REACH, DOOR OPEN. WILL CONTINUE WITH PLAN OF CARE.
[2016-05-30 12:27] VITALS: BP 121/55
--- NOTE | 2016-05-30 13:48 | NUR ---
ELECTROLYTE PROTOCOL INITIATED AT THIS TIME. DENIES NEEDS AT PRESENT TIME. CALL LIGHT IN REACH AND BED IN LOWEST POSITION WITH WHEELS LOCKED AND SRX2. BOX ALARM IN USE FOR FALL PRECATIONS. WILL CONTINUE WITH PLAN OF CARE.
--- NOTE | 2016-05-30 15:18 | NUR ---
NUTRITION MONITORING & EVAL CHART REVIEWED, PT VISIT. TOLERATING REG DIET. 25 TO 50% INTAKE RECENT MEALS. WILL HONOR FOOD PREFERENCES, MONITOR PO INTAKE. RD FOLLOWING
[2016-05-30 15:55] VITALS: BP 100/48
--- NOTE | 2016-05-30 17:50 | NUR ---
IV TO LEFT FOREARM LEAKING AROUND INSERTION SITE. WILL D/C IV ONCE NEW ONE IS SITED.
--- NOTE | 2016-05-30 18:45 | NUR ---
22G IV SITED TO PT'S LEFT UPPER ARM X3 ATTEMPTS. CALL LIGHT IN REACH, WILL CONTINUE WITH PLAN OF CARE.
[2016-05-30 19:00] VITALS: BP 101/53
--- NOTE | 2016-05-30 19:30 | NUR ---
PT SITTING UP IN BED AWAKE, ASSESSMENT COMPLETED, NO ACUTE DISTRESS NOTED, SCD'S ON, SR'S UP, CL IN REACH, WILL MONITOR
--- NOTE | 2016-05-30 20:51 | NUR ---
MEDS GIVEN PER MAR, ALICIA WELL, FALL PRECAUTIONS IN PLACE, CL IN REACH
--- NOTE | 2016-05-30 23:30 | NUR ---
PT UP TO BSC MULTIPLE TIMES, NO DISTRESS NOTED, FALL PRECAUTIONS IN PLACE, CL IN REACH
[2016-05-31 01:00] VITALS: BP 112/55
[2016-05-31 04:00] VITALS: BP 118/50
[2016-05-31 06:27] LABS: CALC OSMOLALITY 287 mosm/kg (275-300); CALCIUM 9.2 mg/dL (8.5-10.1); CARBON DIOXIDE 37.1 mmol/L (21.0-32.0); CHLORIDE - SERUM 98 mmol/L (98-107); CREATININE - SERUM 0.5 mg/dL (0.6-1.3); GLUCOSE 112 mg/dL (74-106); MAGNESIUM - SERUM 2.2 mg/dL (1.8-2.4); PHOSPHOROUS 3.1 mg/dL (2.5-4.9); SODIUM 141 mmol/L (136-145); UREA NITROGEN 28 mg/dL (7-18); eGFR NON AFRICAN AMERICAN > 90 mL/min (90-120)
--- NOTE | 2016-05-31 06:57 | NUR ---
KCL GIVEN PER E. PROTOCOL FOR LEVEL OF 3.0, LABS FOR RECHECK ORDERED
--- NOTE | 2016-05-31 07:15 | NUR ---
DENIES NEEDS AT THIS TIME. PULLED UPRIGHT IN BED, PT SELF POSITIONS FOR COMFORT. SCD'S ON AND CALL LIGHT IN REACH. BOX ALARM IN USE. WILL CONTINUE WITH PLAN OF CARE.
[2016-05-31 07:59] VITALS: BP 108/49
--- NOTE | 2016-05-31 09:40 | NUR ---
SCHEDULED MEDICATIONS ADMINISTERED AT THIS TIME. ASSESSMENT PERFORMED PER FLOWSHEET. DENIES PAIN AT THIS TIME. AMBULATES TO BEDSIDE COMMODE WITH STANBY ASSIST AND CANE. SCD'S ON AT THIS TIME. ASSISTED PT BACK TO BED. CALL LIGHT IN REACH, SRX2 WITH BED IN LOWEST POSITION AND WHEELS LOCKED. BOX ALARM IN USE FOR FALL PRECAUTIONS. WILL CONTINUE WITH PLAN OF CARE.
[2016-05-31 10:18] LABS: BASOPHILS 0 % (0.0-2.0); EOSINOPHILS 0 % (0-7); HEMATOCRIT 33.9 % (36.0-48.0); HEMOGLOBIN 10.5 g/dL (12-16); MCH 30.2 pg (26.0-34.0); MCV 97.4 fL (80.0-100.0); MEAN PLATELET VOLUME 10.8 fL (7.4-10.4); MONOCYTES 7.2 % (2-11); NEUTROPHILS 81.8 % (40-80); PLATELET COUNT 179 10x3/uL (130-400); RBC 3.48 10x6/uL (4.00-5.40); RDW 13.8 % (11.5-14.5); WBC 8.6 10x3/uL (4.8-10.8)
[2016-05-31 12:06] VITALS: BP 111/50
--- NOTE | 2016-05-31 15:10 | NUR ---
SCHEDULED MEDICATIONS ADMINISTERED AT THIS TIME. IV TO LEFT UPPER ARM PATENT. WILL OBTAIN A SECOND IV SITE FOR ELECTROLYTE PROTOCOL.
[2016-05-31 16:17] VITALS: BP 113/50
--- NOTE | 2016-05-31 17:56 | NUR ---
ELECTROLYTE PROTOCOL INITIATED FOR POTASSIUM OF 2.8 AT THIS TIME. PT DENIES NEEDS AT THIS TIME. CALL LIGHT IN REACH, WILL CONTINUE WITH PLAN OF CARE.
[2016-05-31 19:00] VITALS: BP 115/64
--- NOTE | 2016-05-31 19:20 | NUR ---
DENIES NEEDS AT THIS TIME. ASSESSMENT PERFORMED PER FLOWSHEET. CALL LIGHT IN REACH, WILL CONTNIUE WITH PLAN OF CARE.
[2016-06-01] VITALS: BP 128/59
[2016-06-01 04:00] VITALS: BP 119/54
[2016-06-01 05:58] LABS: BASOPHILS 0 % (0.0-2.0); EOSINOPHILS 0.2 % (0-7); HEMATOCRIT 34.7 % (36.0-48.0); HEMOGLOBIN 10.8 g/dL (12-16); IMMATURE GRANULOCYTES 0.2 % (0-5); LYMPHOCYTES 10.8 % (15-50); MCH 29.8 pg (26.0-34.0); MCHC 31.1 g/dL (31.0-37.0); MCV 95.6 fL (80.0-100.0); MEAN PLATELET VOLUME 10.4 fL (7.4-10.4); MONOCYTES 6.6 % (2-11); NEUTROPHILS 82.2 % (40-80); PLATELET COUNT 186 10x3/uL (130-400); RBC 3.63 10x6/uL (4.00-5.40); RDW 13.4 % (11.5-14.5); WBC 10.6 10x3/uL (4.8-10.8)
[2016-06-01 06:15] LABS: CALC OSMOLALITY 278 mosm/kg (275-300); CALCIUM 8.6 mg/dL (8.5-10.1); CARBON DIOXIDE 33.2 mmol/L (21.0-32.0); CHLORIDE - SERUM 100 mmol/L (98-107); CREATININE - SERUM 0.5 mg/dL (0.6-1.3); GLUCOSE 92 mg/dL (74-106); PHOSPHOROUS 2.9 mg/dL (2.5-4.9); SODIUM 138 mmol/L (136-145); UREA NITROGEN 22 mg/dL (7-18); eGFR NON AFRICAN AMERICAN > 90 mL/min (90-120)
[2016-06-01 06:17] LABS: POTASSIUM - SERUM 3.8 mmol/L (3.5-5.1)
--- NOTE | 2016-06-01 07:15 | NUR ---
REPORT RECEIVED FROM [employer] NURSE. CALL LIGHT IN REACH.
[2016-06-01 08:30] VITALS: BP 116/54
--- NOTE | 2016-06-01 08:46 | NUR ---
ASSESSMSENT COMPLETED. SCDs TO BLE. BERTIN MAT ALARM ON. CALL LIGHT IN REACH. WILL CONTINUE WITH PLAN OF CARE.
--- NOTE | 2016-06-01 09:13 | NUR ---
AM MEDS ADMINISTERED EXCEPT LISINOPRIL D/Y DBP OF 54. SPEECH THERAPIST IN ROOM. CALL LIGHT IN REACH.
--- NOTE | 2016-06-01 09:22 | NUR ---
CM REASSESSMENT NOTE: PATIENT CHOSE [facility] AND SIGNED THE [facility]ITA FORM AND CM WILL SEND REFERRAL. PATIENT STATED SHE AND DR. GHOSH DISCUSSED HOSPICE AND THAT SHE HAS DECIDED TO DO HOME HEALTH RIGHT NOW.
--- NOTE | 2016-06-01 09:39 | NUR ---
RESTING QUIETLY IN BED. NO C/O AT THIS TIME. STATED JUST NOT FEELING GOOD TODAY. WILL MONITOR. LUNGS ARE CLEAR AT THIS TIME. NO COUGH NOTED.
--- NOTE | 2016-06-01 11:55 | NUR ---
WAITING ON LUNCH AT THIS TIME. NO NEEDS VOICED. CALL LIGHT IN REACH.
[2016-06-01 12:18] VITALS: BP 103/66
--- NOTE | 2016-06-01 13:12 | NUR ---
ANA RAO ASSISTED TO BSC AND BACK TO BED.
--- NOTE | 2016-06-01 15:20 | NUR ---
NNO NEEDS VOICED AT THIS TIME. CALL LIGHT IN REACH.
[2016-06-01] MEDS ORDERED: PREDNISONE20 MG PO (16:06)
[2016-06-01] MEDS ORDERED: DIAMOX250 MG PO (16:06)
[2016-06-01] MEDS ORDERED: Levaquin PO (16:06)
[2016-06-01 16:43] VITALS: BP 118/55
--- NOTE | 2016-06-01 17:05 | NUR ---
DENIES PAIN OR NEEDS. WAITING ON DISCHARGE PAPERWORK.
--- NOTE | 2016-06-01 19:05 | NUR ---
LEVAQUIN AND FERROUS SULFATE PO. IV DC'D WITH TIP INTACT. DC INSTRUCTIONS EXPLAINED TO PATIENT AND FAMILY MEMBER. VERBALIZED UNDERSTANDING.
--- NOTE | 2016-06-01 19:19 | NUR ---
[employer] CALLED FOR PICKUP.
--- NOTE | 2016-06-01 20:23 | NUR ---
DC'D TO AMBULANCE VIA GURNEY.
--- NOTE | 2016-06-02 13:31 | NUR ---
CM LATE ENTRY: PATIENT D/C YESTERDAY WITH HOME HOSPICE BY AMBULANCE
--- NOTE | 2016-06-21 08:17 | EC ---
PATIENT:BÁRBARA AVALOS DATE OF SERVICE: 05/25/16 SEX: F MEDICAL RECORD: [id number] DATE OF : 38 LOCATION:D[id number] AGE OF PATIENT: 75 ADMISSION DATE: 05/25/16 REFERRING PHYSICIAN: INTERPRETING PHYSICIAN: EJNNIFER KENYON M.D. ECHOCARDIOGRAM REPORT ECHO CHARGES 5 ECHO LIMITED 1 DOPPLER ECHO COLOR FLOW 2 DOPPLER ECHO PULSE CLINICAL DIAGNOSIS: CHF ECHOCARDIOGRAPHIC MEASUREMENTS (adult normal given) AC root (d.<3.7cm) 0 LV Septum d (<1.2 cm> 0 Valve Excursion 0 LV Septum (systole) 0 Left Atria (s.<4.0cm> 0 LVPW d(<1.2cm) 0 RV (d.<2.3cm) 0 LVPW (sytole) 0 LV diastole(<5.6CM) 0 MV E-F(>70mm/sec) 0 LV systole 0 LVOT Diameter 0 MV exc.(>10mm) 0 Est.ejection fraction (50-75%) 0 Pericardial Effusion N DOPPLER: LVIT 0 A 0 E 0 LA 0 RVSP 48.0 LVOT 0 AOP1/2T 0 Asc. Ao 0 RVOT 0 RA 0 PA 0 AV Gradient Peak 0 AV Mean 0 AV Area 0 MV Gradient Peak 0 MV Mean 0 MV Area 0 COMMENTS: LIMITED STUDY (2-D,COLOR & LIMITED DOPPLER) COMPLETE ECHO DONE ON 04/25/16 Content Curator: Lori VITAL Supervisor Coffee:2 Dr. Kenyon TAPE# PACS DATE OF SERVICE: 05/30/2016 REFERRING PHYSICIAN: Yaakov Flores MD. INDICATION: Congestive heart failure. This is a limited study. A full echo was done 1 week ago. DESCRIPTION: Left ventricle demonstrates marked left ventricular hypertrophy, ECHOCARDIOGRAM REPORT [id number] BÁRBARA AVALOS L is concentric. The dubose are quite thickened. There is severe LV dysfunction noted. Estimated ejection fraction is in the order of 20%. Mitral valve appears structurally normal. There is moderate regurgitation noted. Left atrium is moderately dilated. The aortic valve leaflets are thickened. There is mild insufficiency seen, but no evidence of stenosis. Right ventricular dubose are thickened as well. Tricuspid valve is structurally normal. There is moderate regurgitation seen. Right ventricular systolic pressure is elevated at 48 mmHg. Right atrium is normal size. There is a small posterior pericardial effusion noted, which is not concentric. IMPRESSION: 1. Concentric left ventricular hypertrophy with severe left ventricular dysfunction with ejection fraction of 20%. Again, a wall thickness, I would be concerned about infiltrative cardiomyopathy such as amyloidosis. 2. Moderate mitral regurgitation. 3. Moderate tricuspid regurgitation. TRANSINT:[id number] Voice Confirmation ID: [id number] DOCUMENT ID: [id number] JENNIFER KENYON M.D. at 0817 CC: [id number] DICTATION DATE: 05/31/16 0751 TRANSLATOR DEAF: 05/31/16 1324 DIS IN 06/01/16 [facility] [address] [place] [address]
== END 2016-06-01 20:23 | disposition home health service (06) | DRG 189 ==
LOC: D.ER 06:40 → D.MS 10:38
PROVIDERS: Emergency Medicine; Internal Medicine Pulmonary Disease; ADMIT Family Medicine
DX: J96.21 Acute and chronic respiratory failure with hypoxia (principal); I50.23 Acute on chronic systolic (congestive) heart failure; J18.1 Lobar pneumonia, unspecified organism; J44.0 Chronic obstructive pulmonary disease with (acute) lower respiratory infection; J44.1 Chronic obstructive pulmonary disease with (acute) exacerbation; I42.9 Cardiomyopathy, unspecified; Z68.1 Body mass index [BMI] 19.9 or less, adult; J90 Pleural effusion, not elsewhere classified; F17.203 Nicotine dependence unspecified, with withdrawal; I27.2 Other secondary pulmonary hypertension; R63.4 Abnormal weight loss; E87.6 Hypokalemia; I08.1 Rheumatic disorders of both mitral and tricuspid valves

== ENCOUNTER 2016-08-01 05:17 | Inpatient (IN) | payer MEDICARE ==
[~2016-08-01] VITALS: Ht 147.3 cm; Wt 34.8 kg
[~2016-08-01 05:17] MED LIST changes: +DIAMOX250 MG PO; +KLONOPIN0.5 MG PO; +Levaquin PO; +PREDNISONE20 MG PO; +SPIRIVA18 MCG INH
[2016-08-01 06:04] LABS: BASOPHILS 0.3 % (0-2); EOSINOPHILS 1.4 % (0-7); IMMATURE GRANULOCYTES 0.1 % (0-5); LYMPHOCYTES 28.4 % (15-50); MCH 30.2 pg (26.0-34.0); MCHC 30.6 g/dL (31.0-37.0); MCV 98.9 fL (80.0-100.0); MEAN PLATELET VOLUME 9.7 fL (7.4-10.4); MONOCYTES 8.4 % (2-11); NEUTROPHILS 61.4 % (40-80); RBC 3.64 10x6/uL (4.00-5.40); RDW 13.6 % (11.5-14.5); WBC 12.5 10x3/uL (4.8-10.8)
[2016-08-01 06:27] LABS: PLATELET COUNT 277 10x3/uL (130-400)
[2016-08-01 06:42] LABS: ALBUMIN 3.4 g/dL (3.4-5.0); ALKALINE PHOSPHATASE 98 U/L (46-116); ALT (SGPT) 20 U/L (10-68); BILIRUBIN - TOTAL 0.35 mg/dL (0.2-1.3); CALC OSMOLALITY 282 mosm/kg (275-300); CALCIUM 8.6 mg/dL (8.5-10.1); CARBON DIOXIDE 38.4 mmol/L (21.0-32.0); CHLORIDE - SERUM 100 mmol/L (98-107); CREATININE - SERUM 0.6 mg/dL (0.6-1.3); GLUCOSE 154 mg/dL (74-106); POTASSIUM - SERUM 4.4 mmol/L (3.5-5.1); PROTEIN - SERUM 7.1 g/dL (6.4-8.2); SODIUM 141 mmol/L (136-145); UREA NITROGEN 10 mg/dL (7-18); eGFR NON AFRICAN AMERICAN > 90 mL/min (90-120)
[2016-08-01 06:49] LABS: PRO BNP 7686 pg/mL (0-450); TROPONIN-I 0.052 ng/mL (0.000-0.060)
--- NOTE | 2016-08-01 07:21 | NUR ---
PT ARRIVED VIA STREACHER WITH ER STAFF. PT ON A NON REBREATHER WITH 15L O2. B/P 142/52, P 56, R 8, TEMP 97.4, POX 93% 15l NON REBREATHER. PT IS A DNR. WILL ADMIT.
[2016-08-01 07:28] VITALS: BP 142/52; Ht 147.3 cm; Wt 34.8 kg
--- NOTE | 2016-08-01 08:04 | NUR ---
FAMILY ARRIVED. FAMILY MEMMBERS STATED THAT THEY PROMISSED PT THAT SHE WOULD NOT IN THE HOSPITAL. AND STATES "WE WILL TAKE HER". FAMILY HAS A STRONG ODER OF MARIJUANA. CALL INTO [facility], AWAITING CALL BACK. CHARGE NURSE AND HOUSE SUP NOTIFIED. WILL CONTINUE TO MONITOR.
--- NOTE | 2016-08-01 08:15 | NUR ---
[facility] TO CALL BACK AND SITUATION IS EXPLAINED TO HER. SHE REPORTS THAT SHE THINKS DR NEWBERRY IS IN ICU AND SHE WILL TRY AND CONTACT HIM.
[2016-08-01 08:33] VITALS: BP 142/52
--- NOTE | 2016-08-01 09:47 | NUR ---
NO CALL FROM EXTENDER, CALLED ANSWERING SERVICE AGAIN.
--- NOTE | 2016-08-01 10:05 | NUR ---
[id number] [place] TO CALL BACK FROM [facility] OFFICE, INFORMATION GIVEN.
--- NOTE | 2016-08-01 10:21 | NUR ---
[facility] HERE. RELEASED BODY TO [facility].
== END 2016-08-01 10:22 | DRG 190 ==
LOC: D.ER 05:17 → D.M2 06:26
PROVIDERS: Family Medicine; ADMIT Family Medicine
DX: J44.0 Chronic obstructive pulmonary disease with (acute) lower respiratory infection (principal); J18.9 Pneumonia, unspecified organism; J44.1 Chronic obstructive pulmonary disease with (acute) exacerbation; I50.9 Heart failure, unspecified